=== PATIENT | female | born 1980 | race Caucasian/White ===

== ENCOUNTER 2020-09-06 11:06 | Day surgery (SDC) | payer OTHER ==
[2020-09-06] MEDS ORDERED: Sodium Chloride 0.9(Preservative Free) 10 ML IJ ONE (11:07)
[2020-09-06] MEDS ORDERED: Depo-Medrol 40 MG/ML IM ONE (11:07)
[2020-09-06] MEDS ORDERED: Ketamine HCl 50 MG/ML ONE (14:00)
[2020-09-06] MEDS ORDERED: DIPRIVAN 200 MG/20 ML IV ONE (14:00)
--- NOTE | 2020-09-06 15:20 | XRAY ---
Indication: Right L3-L5 transforaminal JUDY. Intraoperative fluoroscopy was provided for 55 seconds. 3 digital spot images submitted for interpretation demonstrates posterior needle tips projecting over the expected right L3 and L4 nerve roots. Small amount of contrast injected for needle tip placement. Correlate with intraoperative findings/report.
[2020-09-06] MEDS ORDERED: Lactated Ringers 1,000 ML IV ONE (16:08)
--- NOTE | 2020-09-06 16:31 | XRAY ---
55 seconds fluoroscopy time in surgery for right L3-L5 transforaminal JUDY.
== END 2020-09-06 14:35 | disposition home or self-care (01) ==
LOC: SDC-PAIN 11:06
PROVIDERS: ATTEND Psychiatry & Neurology Pain Medicine
DX: M54.16 Radiculopathy, lumbar region (principal); K21.9 Gastro-esophageal reflux disease without esophagitis; F41.9 Anxiety disorder, unspecified; Z79.899 Other long term (current) drug therapy
CPT/HCPCS: 64483; 64484; 72100; 77003; 84703; J1030; J2704; Q9966

== ENCOUNTER 2021-06-20 11:00 | Day surgery (SDC) | payer OTHER ==
[2021-06-20] MEDS ORDERED: Sodium Chloride 0.9(Preservative Free) 10 ML IJ ONE (11:01)
[2021-06-20] MEDS ORDERED: Depo-Medrol 40 MG/ML IM ONE (11:01)
[2021-06-20] MEDS ORDERED: DIPRIVAN 200 MG/20 ML IV ONE (12:25)
[2021-06-20] MEDS ORDERED: Lactated Ringers 1,000 ML IV ONE (13:38)
--- NOTE | 2021-06-20 13:58 | XRAY ---
26 seconds fluoroscopy time in surgery for caudal JUDY.
--- NOTE | 2021-06-20 14:08 | XRAY ---
Indication: Caudal JUDY. Intraoperative fluoroscopy provided for 26 seconds. 2 digital spot images submitted for interpretation demonstrates posterior caudal needle tip projecting mid sacrum. Small amount of contrast injected for needle tip placement. Correlate with intraoperative findings/report.
== END 2021-06-20 12:55 | disposition home or self-care (01) ==
LOC: SDC-PAIN 11:00
PROVIDERS: ATTEND Psychiatry & Neurology Pain Medicine
DX: M54.16 Radiculopathy, lumbar region (principal); Z79.899 Other long term (current) drug therapy
CPT/HCPCS: 62323; 72020; 77003; 84703; J1030; J2704; Q9966

== ENCOUNTER → 2022-01-02 | Day surgery (SDC) | payer OTHER ==
[~2022-01-02] MED LIST: DIPRIVAN 200 MG/20 ML IV ONE; Depo-Medrol 40 MG/ML IM ONE; Lactated Ringers 1,000 ML IV ONE; Sodium Chloride 0.9(Preservative Free) 10 ML IJ ONE
--- NOTE | 2022-01-02 20:02 | XRAY ---
Indication: Caudal JUDY. Intraoperative fluoroscopy provided for 20 seconds. 2 digital spot images submitted for interpretation demonstrates caudal needle tip projecting mid sacrum. Small amount of contrast injected for needle tip placement. Correlate with intraoperative findings/report.
--- NOTE | 2022-01-03 09:41 | XRAY ---
20 seconds of fluoroscopy was used in surgery for a caudal JUDY.
== END ==
LOC: SDC-PAIN 14:28
PROVIDERS: ATTEND Psychiatry & Neurology Pain Medicine
DX: M54.16 Radiculopathy, lumbar region (principal); Z79.899 Other long term (current) drug therapy
CPT/HCPCS: 62323; 72100; 77003; 84703; J1030; J2704; Q9966